=== PATIENT | male | born 1965 | race African-American/Black ===

== ENCOUNTER 2017-03-23 22:38 | Emergency (ER) | payer OTHER ==
[~2017-03-23] VITALS: Ht 182.9 cm; Wt 86.0 kg
[2017-03-23] MEDS ORDERED: SODIUM CHLORIDE 0.9% 1,000 ML IV ONE (23:28)
[2017-03-24 00:05] LABS: BASOPHILS % 0.4 % (0.0-2.0); EOSINOPHILS % 1.4 % (0.0-5.0); HEMATOCRIT. 42.3 % (42.0-52.0); LYMPHOCYTES % 9.5 % (20.0-50.0); MEAN CORPUSCULAR HEMOGLOBIN 28.8 pg (28.0-32.0); MEAN CORPUSCULAR VOLUME 86.7 fL (80.0-94.0); MEAN PLATELET VOLUME 7.7 fl (7.4-10.4); MONOCYTES % 5.7 % (2.0-8.0); PLATELET 281 x1000/uL (130-400); RED BLOOD CELL COUNT 4.88 mill/uL (4.7-6.1)
[2017-03-24 00:08] LABS: CHLORIDE 109 mEq/L (98-107)
[2017-03-24 00:16] LABS: CARBON DIOXIDE 28 mEq/L (21-32)
[2017-03-24 00:17] LABS: CREATINE KINASE 613 IU/L (39-308); ETHANOL BLOOD < 10 mg/dL
[2017-03-24 01:21] LABS: *AMPHETAMINES SCREEN URINE NEGATIVE (NEGATIVE); *BARBITURATES SCREEN URINE NEGATIVE (NEGATIVE); *BENZODIAZEPINES SCREEN URINE NEGATIVE (NEGATIVE); *COCAINE SCREEN URINE NEGATIVE (NEGATIVE); CANNABINOID URINE SCREEN PRESUMTIVE POSITIVE (NEGATIVE); METHADONE URINE SCREEN NEGATIVE (NEGATIVE); OPIATES URINE SCREEN NEGATIVE (NEGATIVE); PHENCYCLIDINE URINE SCREEN PRESUMTIVE POSITIVE (NEGATIVE)
[2017-03-24 06:25] VITALS: BP 130/85
== END 2017-03-24 06:44 | disposition home or self-care (01) ==
LOC: ER 22:38 → EDBD 22:38 → ER 03-24 06:44
DX: G93.40 Encephalopathy, unspecified (principal); F15.10 Other stimulant abuse, uncomplicated; F12.10 Cannabis abuse, uncomplicated
CPT/HCPCS: 36415; 80053; 80305; 82550; 85025; 99284; G0482; Z7610; J7030

== ENCOUNTER 2019-09-22 20:23 | Emergency (ER) | payer MEDICAID, OTHER ==
[~2019-09-22] VITALS: Ht 182.9 cm; Wt 76.0 kg
[2019-09-22] MEDS ORDERED: LORAZEPAM 2MG/ML CPJ IV ONE (21:00)
[2019-09-22] MEDS ORDERED: LEVETIRACETAM 500MG PREMIX 100 ML IV ONE (21:15)
[2019-09-22 21:19] LABS: BASOPHILS % 0.2 % (0.0-2.0); EOSINOPHILS % 0.1 % (0.0-5.0); HEMOGLOBIN. 12.4 g/dL (14.0-18.0); LYMPHOCYTES % 8.8 % (20.0-50.0); MEAN CORPUSCULAR HEMOGLOBIN 28.4 pg (28.0-32.0); MEAN CORPUSCULAR VOLUME 86.8 fL (80.0-94.0); MEAN PLATELET VOLUME 7.8 fl (7.4-10.4); NEUTROPHILS % 85.9 % (40.0-76.0); PLATELET 308 x1000/uL (130-400); RED BLOOD CELL COUNT 4.38 mill/uL (4.7-6.1); RED CELL DISTRIBUTION WIDTH 15.1 % (11.6-14.6)
[2019-09-22 21:25] LABS: CHLORIDE 108 mEq/L (98-107)
[2019-09-22 21:29] LABS: ETHANOL BLOOD < 10 mg/dL
[2019-09-22 21:35] LABS: *AMPHETAMINES SCREEN URINE NEGATIVE (NEGATIVE); *BARBITURATES SCREEN URINE NEGATIVE (NEGATIVE); *BENZODIAZEPINES SCREEN URINE NEGATIVE (NEGATIVE)
[2019-09-22 21:36] LABS: *COCAINE SCREEN URINE PRESUMTIVE POSITIVE (NEGATIVE); CANNABINOID URINE SCREEN PRESUMTIVE POSITIVE (NEGATIVE); METHADONE URINE SCREEN NEGATIVE (NEGATIVE); OPIATES URINE SCREEN NEGATIVE (NEGATIVE); PHENCYCLIDINE URINE SCREEN PRESUMTIVE POSITIVE (NEGATIVE)
[2019-09-22] MEDS ORDERED: DEXTROSE 50% WATER 50ML SYRINGE IV ONE ×2 (22:48→23:30)
[2019-09-23 06:10] VITALS: BP 132/75
== END 2019-09-23 06:02 | disposition home or self-care (01) ==
LOC: ER 20:23
DX: R56.9 Unspecified convulsions (principal); F14.10 Cocaine abuse, uncomplicated; F29 Unspecified psychosis not due to a substance or known physiological condition; F24 Shared psychotic disorder
CPT/HCPCS: 36415; 80053; 80305; 80320; 82962; 85025; 96365; 96375; 99285; J1953; J2060; G0480